=== PATIENT | male | born 2000 | race African-American/Black ===

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

== ENCOUNTER 2023-06-13 15:38 | Emergency (ER) | payer OTHER ==
[~2023-06-13] VITALS: Ht 170.1 cm; Wt 78.0 kg
[2023-06-13 15:47] VITALS: BP 122/93
[2023-06-13] MEDS ORDERED: Tetracaine Hydrochloride 0.5% 4 ML BOT OPH ONE (17:00)
[2023-06-13] MEDS ORDERED: FLUORESCEIN SODIUM 1 MG STRIP OPH ONE (17:05)
[2023-06-13] MEDS ORDERED: TOBRADEX ST EYE5 ML OP (17:29)
== END 2023-06-13 17:33 | disposition home or self-care (01) ==
LOC: ED 15:38
DX: S05.02XA Injury of conjunctiva and corneal abrasion without foreign body, left eye, initial encounter (principal); X58.XXXA Exposure to other specified factors, initial encounter; Y93.89 Activity, other specified; Y92.89 Other specified places as the place of occurrence of the external cause; Y99.0 Civilian activity done for income or pay